=== PATIENT | male | born 2005 | race Caucasian/White ===

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

== ENCOUNTER 2023-11-23 11:53 | Emergency (ER) | payer SELFPAY ==
[2023-11-23 12:15] VITALS: BP 101/49; PULSE 82
== END 2023-11-23 12:43 | disposition home or self-care (01) ==
LOC: MW.ED 11:53
DX: J32.9 Chronic sinusitis, unspecified (principal); Z75.8 Other problems related to medical facilities and other health care
CPT/HCPCS: 99283

== ENCOUNTER 2023-12-10 21:27 | Emergency (ER) | payer SELFPAY ==
[2023-12-10 22:13] VITALS: BP 94/49; PULSE 78
[2023-12-10] MEDS: Lidocaine 1% with EPINEPHrine 1:200,000 30 ML SDV STA (22:19)
[2023-12-10] MEDS: Tranexamic Acid 1,000 MG/10 ML Vial ONE (22:19)
== END 2023-12-10 23:15 | disposition home or self-care (01) ==
LOC: MW.ED 21:27
DX: K14.8 Other diseases of tongue (principal)
CPT/HCPCS: 99283; J3490; 99282

== ENCOUNTER 2024-01-05 21:29 | Emergency (ER) | payer SELFPAY ==
[2024-01-05] MEDS: Sucralfate Suspension 1 GM/10 ML Cup PO ONE (21:44)
[2024-01-05] MEDS: Lidocaine 4% 1 each Patch TOP ONE (21:44)
[2024-01-05 21:56] LABS: BASOPHILS ABSOLUTE AUTO 0.04 K/uL (0.00-0.20); BASOPHILS PERCENT AUTO 0.5 % (0.0-1.0); EOSINOPHILS ABSOLUTE AUTO 0.16 K/uL (0.00-0.45); HEMATOCRIT 43.5 % (42.0-52.0); HEMOGLOBIN 15.5 g/dL (14.0-18.0); IMMATURE GRAN ABSOLUTE AUTO 0.01 K/uL (0.00-0.05); IMMATURE GRAN PERCENT AUTO 0.1 % (0.0-0.4); LYMPHOCYTES ABSOLUTE AUTO 2.56 K/uL (1.00-4.80); LYMPHOCYTES PERCENT AUTO 32.6 % (24.0-44.0); MEAN CORPUSCULAR HEMOGLOBIN 30.5 pg (28.0-32.0); MEAN CORPUSCULAR HGB CONC 35.6 g/dL (32.0-36.0); MEAN CORPUSCULAR VOLUME 85.6 fL (83.0-99.0); MEAN PLATELET VOLUME 9.3 fL (9.4-12.4); MONOCYTES ABSOLUTE AUTO 0.59 K/uL (0.00-0.80); MONOCYTES PERCENT AUTO 7.5 % (0.0-8.0); NEUTROPHILS ABSOLUTE AUTO 4.49 K/uL (1.80-7.70); NEUTROPHILS PERCENT AUTO 57.3 % (41.0-71.0); PLATELET COUNT,PLT 245 K/uL (150-400); RED BLOOD CELL COUNT 5.08 M/uL (4.52-5.90); WHITE BLOOD CELL COUNT,WBC 7.85 K/uL (3.9-11.3)
[2024-01-05 22:25] LABS: A/G RATIO 1.3 (0.9-1.6); BILIRUBIN TOTAL 0.4 mg/dL (0.2-1.0); CALCIUM 8.9 mg/dL (8.5-10.1); CARBON DIOXIDE,CO2 26.9 mmol/L (21.0-32.0); EST CRCL DRUG DOSING (CG) 105.84 mL/min; POTASSIUM,K 3.6 mmol/L (3.5-5.1); PROTEIN TOTAL,TP 7.2 g/dL (6.4-8.2)
[2024-01-06 00:05] VITALS: BP 124/79; PULSE 81
== END 2024-01-06 00:04 | disposition home or self-care (01) ==
LOC: MW.ED 21:29
DX: R07.89 Other chest pain (principal); Z88.0 Allergy status to penicillin; Z79.899 Other long term (current) drug therapy
CPT/HCPCS: 36415; 71046; 80053; 83690; 84484; 85025; 85379; 93005; 99285; A9270; 93010; 99283